=== PATIENT | female | born 1990 | race African-American/Black ===

== ENCOUNTER 2017-05-15 21:46 | Emergency (ER) | payer MEDICAID ==
[2017-05-15 21:53] VITALS: BP 135/86
--- NOTE | 2017-05-15 22:32 | ER Document Report ---
ED General - General Chief Complaint: Numbness Stated Complaint: NUMBNESS IN TOE,MUCUS IN STOOL Time Seen by Provider: 05/15/17 22:08 Notes: Patient is a 26-year-old female who presents with a multitude of vague complaints including intermittent paresthesias particularly of the plantar aspect of her right great toe, panic attacks, nausea, mucousy bowel movements and weight loss. States that she came to the emergency department today because she had some numbness of her right forearm that has since resolved. Patient has not been following with her primary care doctor regarding today's concerns. Nothing improves or worsens her symptoms. She denies any focal abdominal pain, fever or shortness of breath. Denies any confusion, neck pain or headache. States symptoms have been ongoing for the past 3-4 months. Denies any active paresthesias weakness or numbness of the time of my assessment. TRAVEL OUTSIDE OF THE [place] IN LAST 30 DAYS: No - Related Data Allergies/Adverse Reactions: amoxicillin [Amoxicillin] Allergy (Verified 01/13/16 05:48) Hives Penicillins Allergy (Verified 03/29/15 13:00) cillins Allergy (Uncoded 03/29/15 13:00) Past Medical History - General Information source: Patient - Social History Smoking Status: Never Smoker Frequency of alcohol use: None Drug Abuse: None Lives with: Family Family History: Reviewed & Not Pertinent Patient has suicidal ideation: No Patient has homicidal ideation: No - Past Medical History Cardiac Medical History: Denies: Hx Coronary Artery Disease, Hx Heart Attack, Hx Hypertension Pulmonary Medical History: Denies: Hx Asthma, Hx Bronchitis, Hx COPD, Hx Pneumonia Neurological Medical History: Denies: Hx Cerebrovascular Accident, Hx Migraine, Hx Seizures Renal/ Medical History: Denies: Hx Peritoneal Dialysis GI Medical History: Reports: Hx Gastroesophageal Reflux Disease Musculoskeltal Medical History: Denies Hx Arthritis, Reports Hx Musculoskeletal Trauma Psychiatric Medical History: Reports: Hx Anxiety, Hx Bipolar Disorder Traumatic Medical History: Reports: Hx Fractures Past Surgical History: Reports: Hx Oral Surgery. Denies: Hx Hysterectomy - Immunizations Immunizations up to date: Yes Hx Diphtheria, Pertussis, Tetanus Vaccination: Yes Review of Systems - Review of Systems Notes: Constitutional: Negative for fever. HENT: Negative for sore throat. Eyes: Negative for visual changes. Cardiovascular: Negative for chest pain. Respiratory: Negative for shortness of breath. Gastrointestinal: Negative for abdominal pain, vomiting, positive for diarrhea Genitourinary: Negative for dysuria. Musculoskeletal: Negative for back pain. Skin: Negative for rash. Neurological: Negative for headaches, weakness or numbness. Positive for paresthesias 10 point ROS negative except as marked above and in HPI. Physical Exam - Vital signs Vitals: Temp Pulse Resp BP Pulse Ox 97.7 F 81 16 135/86 H 100 05/15/17 21:50 05/15/17 21:50 05/15/17 21:50 05/15/17 21:50 05/15/17 21:50 Interpretation: Normal Notes: PHYSICAL EXAMINATION: GENERAL: Well-appearing, well-nourished and in no acute distress. HEAD: Atraumatic, normocephalic. EYES: Pupils equal round and reactive to light, extraocular movements intact, sclera anicteric, conjunctiva are normal. ENT: nares patent, oropharynx clear without exudates. Moist mucous membranes. NECK: Normal range of motion, supple without lymphadenopathy LUNGS: Breath sounds clear to auscultation bilaterally and equal. No wheezes rales or rhonchi. HEART: Regular rate and rhythm without murmurs ABDOMEN: Soft, nontender, normoactive bowel sounds. No guarding, no rebound. No masses appreciated. EXTREMITIES: Normal range of motion, no pitting or edema. No cyanosis. NEUROLOGICAL: Face symmetric. Tongue protrudes midline. Extraocular motions intact. Pupils are 2 mm and equally reactive. Normal speech, normal gait. 5 out of 5 strength in both the distal and proximal upper and lower extremities bilaterally. Sensation is grossly intact throughout. Finger to nose testing normal. Pronator drift normal. PSYCH: Appears anxious SKIN: Warm, Dry, normal turgor, no rashes or lesions noted. Course - Re-evaluation Re-evalutation: 05/15/17 22:32 Patient presents with multiple vague complaints that did not appear to be concerning for any acute life-threatening pathology. Vitals are within normal limits at triage and at time of discharge. Physical examination is unremarkable. Patient has tolerated oral intake without difficulty. Patient was not noted to be in distress at any point during their ER visit. At this time, based on the reassuring evaluation, I do not suspect an acute FL, pulmonary embolus, aortic dissection, acute intra-abdominal pathology, stroke, or sepsis. Patient is complaining of intermittent paresthesias that have been unchanged for the past several months and may be related to malnutrition. She has no neurologic deficit on examination. Will discharge with return precautions and follow-up recommendations. Verbal discharge instructions given a the bedside and opportunity for questions given. Medication warnings reviewed. Patient is in agreement with this plan and has verbalized understanding of return precautions and the need for primary care follow-up in the next 24-72 hours. - Vital Signs Vital signs: Temp Pulse Resp BP Pulse Ox 97.7 F 86 20 135/86 H 99 05/15/17 21:50 05/15/17 23:58 05/15/17 23:58 05/15/17 23:58 05/15/17 23:58 - Laboratory Result Diagrams: 05/15/17 22:31 05/15/17 22:31 Laboratory results interpreted by me: 05/15/17 05/15/17 22:31 22:31 RDW 14.4 H Urine Protein 100 H Urine Blood LARGE H Discharge - Discharge Clinical Impression: Paresthesias Condition: Good Disposition: HOME, SELF-CARE Additional Instructions: All of your labs are normal today. The exact cause of your symptoms are unclear at this time but you should follow-up with your primary care doctor as well as your GI doctor for further evaluation. Please return to the emergency room immediately if you experience any concerning symptoms including high fevers , severe headache, chest pain, difficulty breathing, abdominal pain, slurred speech, numbness or weakness in your arms or legs, or any other symptom that concerns you.
[2017-05-15 22:40] LABS: ABSOLUTE BASOPHILS # (AUTO) 0.1 10^3/uL (0.0-0.2); ABSOLUTE EOSINOPHILS # (AUTO) 0.1 10^3/uL (0.0-0.6); ABSOLUTE LYMPHOCYTES (AUTO) 1.7 10^3/uL (0.5-4.7); ABSOLUTE MONOCYTES (AUTO) 0.5 10^3/uL (0.1-1.4); ABSOLUTE NEUT (AUTO) 4.4 10^3/uL (1.7-8.2); BASOPHILS % (AUTO) 0.8 % (0-2); EOSINOPHILS % (AUTO) 1.1 % (0-6); HEMATOCRIT 38.3 % (36.0-47.0); HEMOGLOBIN 12.5 g/dL (12.0-15.5); HGB HCT DIFFERENCE -0.8; LYMPHOCYTES % (AUTO) 25.6 % (13-45); MEAN CORPUSCULAR HEMOGLOBIN 28.7 pg (27.0-33.4); MEAN CORPUSCULAR HGB CONC 32.6 g/dL (32.0-36.0); MEAN CORPUSCULAR VOLUME 88 fl (80-97); RED BLOOD COUNT 4.35 10^6/uL (3.72-5.28); RED CELL DISTRIBUTION WIDTH 14.4 % (11.5-14.0); SEGMENTED NEUTROPHILS % (AUTO) 65.5 % (42-78); WHITE BLOOD COUNT 6.7 10^3/uL (4.0-10.5)
[2017-05-15 22:50] LABS: APPEARANCE,URINE CLOUDY; BILIRUBIN,URINE NEGATIVE (NEGATIVE); GLUCOSE, URINE NEGATIVE (NEGATIVE); KETONES,URINE NEGATIVE (NEGATIVE); LEUKOCYTE ESTERASE,URINE NEGATIVE (NEGATIVE); NITRITE,URINE NEGATIVE (NEGATIVE); PROTEIN,URINE 100 mg/dL (NEGATIVE); URINE SPECIFIC GRAVITY 1.032; UROBILINOGEN,URINE NEGATIVE mg/dL (<2.0)
[2017-05-15 22:53] LABS: ANION GAP 13 (5-19); BLOOD UREA NITROGEN 8 mg/dL (7-20); CALCIUM 9.3 mg/dL (8.4-10.2); CARBON DIOXIDE 26 mmol/L (22-30); CHLORIDE 102 mmol/L (98-107); CREATININE RESULT 0.84 mg/dL (0.52-1.25); GLUCOSE 84 mg/dL (75-110); POTASSIUM 3.8 mmol/L (3.6-5.0); SODIUM 140.7 mmol/L (137-145)
== END 2017-05-15 23:58 | disposition home or self-care (01) ==
LOC: ER 21:46
DX: R20.0 Anesthesia of skin (principal); Z88.0 Allergy status to penicillin
CPT/HCPCS: 36415; 80048; 81001; 81025; 85025; 99284

== ENCOUNTER 2019-06-24 07:30 | Emergency (ER) | payer SELFPAY ==
[2019-06-24 08:57] LABS: APPEARANCE,URINE SLIGHTLY-CLOUDY; BILIRUBIN,URINE NEGATIVE (NEGATIVE); COLOR,URINE YELLOW; GLUCOSE, URINE NEGATIVE (NEGATIVE); KETONES,URINE 20 mg/dL (NEGATIVE); LEUKOCYTE ESTERASE,URINE LARGE (NEGATIVE); NITRITE,URINE NEGATIVE (NEGATIVE); PROTEIN,URINE NEGATIVE (NEGATIVE); URINE SPECIFIC GRAVITY 1.013; UROBILINOGEN,URINE NEGATIVE mg/dL (<2.0)
[2019-06-24 10:25] VITALS: BP 103/70
--- NOTE | 2019-06-24 10:42 | ER Document Report ---
ED General - General Chief Complaint: Pain All Over Stated Complaint: BODY PAIN, LOW BACK PAIN Time Seen by Provider: 06/24/19 09:41 Primary Care Provider: [facility] [NO LOCAL MD] - Follow up as needed TRAVEL OUTSIDE OF THE [place] IN LAST 30 DAYS: No - HPI Notes: Patient is a 28-year-old female presents emergency department for evaluation. She states she started feeling poorly on Sunday. She described a sensation that her throat was "swollen" without difficulty swallowing or breathing. She states she had body aches all over, but particularly points to her low back area, stating her "kidneys hurt." She denies any fevers but has had some intermittent chills. No nausea or vomiting. She has had some malaise and easy fatigue. She denies any cough or shortness of breath. She has had frequent urination, and occasional dysuria. - Related Data Allergies/Adverse Reactions: amoxicillin [Amoxicillin] Allergy (Verified 06/24/19 07:58) Hives Penicillins Allergy (Verified 06/24/19 07:58) cillins Allergy (Uncoded 06/24/19 07:58) Home Medications: Multivitamin Past Medical History - General Information source: Patient - Social History Smoking Status: Current Some Day Smoker Chew tobacco use (# tins/day): No Frequency of alcohol use: None Drug Abuse: None Family History: Reviewed & Not Pertinent Patient has suicidal ideation: No Patient has homicidal ideation: No - Past Medical History Cardiac Medical History: Denies: Hx Coronary Artery Disease, Hx Heart Attack, Hx Hypertension Pulmonary Medical History: Denies: Hx Asthma, Hx Bronchitis, Hx COPD, Hx Pneumonia Neurological Medical History: Denies: Hx Cerebrovascular Accident, Hx Migraine, Hx Seizures Renal/ Medical History: Denies: Hx Peritoneal Dialysis GI Medical History: Reports: Hx Gastroesophageal Reflux Disease Musculoskeletal Medical History: Denies Hx Arthritis, Reports Hx Musculoskeletal Trauma Psychiatric Medical History: Reports: Hx Anxiety, Hx Bipolar Disorder Traumatic Medical History: Reports: Hx Fractures Past Surgical History: Reports: Hx Oral Surgery. Denies: Hx Hysterectomy - Immunizations Immunizations up to date: Yes Hx Diphtheria, Pertussis, Tetanus Vaccination: Yes Review of Systems - Review of Systems Constitutional: See HPI EENT: See HPI Cardiovascular: No symptoms reported Respiratory: No symptoms reported Gastrointestinal: No symptoms reported Genitourinary: See HPI Female Genitourinary: No symptoms reported Musculoskeletal: See HPI Skin: No symptoms reported Neurological/Psychological: No symptoms reported Physical Exam - Vital signs Vitals: Temp Pulse Resp BP Pulse Ox 99.0 F 88 16 116/77 97 06/24/19 07:35 06/24/19 07:35 06/24/19 07:35 06/24/19 07:35 06/24/19 07:35 - Notes Notes: Vital signs reviewed, please refer to chart. Head is normocephalic, atraumatic. Pupils equal round, reactive to light. Mild erythema to the posterior pharynx without exudate. Neck is supple without meningismus. Heart is regular rate and rhythm. Lungs are clear to auscultation bilaterally. Abdomen is soft, moderately tender in the suprapubic region without rebound or guarding, normoactive bowel sounds throughout. Examination of the spine yields no midline tenderness step-off. No paraspinal musculature tenderness is appreciated. Extremities without cyanosis, clubbing. Posterior calves are nontender. Peripheral pulses are equal. Skin is warm and dry. Patient is awake, alert, neurological exam is nonfocal. Course - Re-evaluation Re-evalutation: 06/24/19 10:38 Patient presents emergency department for evaluation. She had strep screen and urinalysis. Urinalysis revealed large leukocyte esterase. In the presence of her symptoms, I do suspect urinary tract infection. She is allergic to cillins. I will go ahead and start her on Macrobid. We will also send her home with a short course of Pyridium. She is to stay hydrated, follow-up with primary care. She is to return the emergency department for worsening or new concerning symptoms of any sort. - Vital Signs Vital signs: Temp Pulse Resp BP Pulse Ox 99.2 F 92 16 103/70 100 06/24/19 10:23 06/24/19 10:23 06/24/19 10:23 06/24/19 10:23 06/24/19 10:23 - Laboratory Laboratory results interpreted by me: 06/24/19 08:30 Urine Ketones 20 H Ur Leukocyte Esterase LARGE H Urine Ascorbic Acid 40 H Discharge - Discharge Clinical Impression: Urinary tract infection Qualifiers: Urinary tract infection type: site unspecified Hematuria presence: without hematuria Qualified Code(s): N39.0 - Urinary tract infection, site not specified Pharyngitis Qualifiers: Pharyngitis/tonsillitis etiology: unspecified etiology Qualified Code(s): J02.9 - Acute pharyngitis, unspecified Condition: Stable Disposition: HOME, SELF-CARE Instructions: Nitrofurantoin ([facility]), Urinary Anesthetic Agent ([facility]), Urinary Tract Infection ([facility]) Additional Instructions: Rest. Stay well-hydrated. Take all the antibiotic as prescribed until it is gone. Take Pyridium as needed for urinary pain. Please note that this will turn your urine a bright orange color. Do not wear contact lenses while using this medication. He will be contacted if your throat culture grows any bacteria. Follow-up with primary care next week. Return to the emergency department with worsening or concerning symptoms of any sort. Prescriptions: Nitrofurantoin Macrocrystal [Macrodantin] 50 mg PO Q6H #28 capsule Phenazopyridine HCl [Pyridium 200 mg Tablet] 200 mg PO TID PRN #6 tablet PRN Reason: Urinary pain Forms: Smoking Cessation Education, Return to Work Referrals: [facility] [NO LOCAL MD] - Follow up as needed
== END 2019-06-24 10:45 | disposition home or self-care (01) ==
LOC: ER 07:30
DX: N39.0 Urinary tract infection, site not specified (principal); J02.9 Acute pharyngitis, unspecified; M54.5 Low back pain; R53.81 Other malaise; R53.83 Other fatigue; F17.200 Nicotine dependence, unspecified, uncomplicated
CPT/HCPCS: 81001; 87070; 87086; 87088; 87880; 99283